=== PATIENT | female | born 1955 | race Caucasian/White ===

== ENCOUNTER 2020-04-30 03:32 | Emergency (ER) | payer OTHER ==
[2020-04-30] MEDS ORDERED: Lactated Ringers 500 ML IV ONE (04:40)
--- NOTE | 2020-04-30 04:40 | EDM.PDOC ---
ED HPI GENERAL MEDICAL PROBLEM - General Chief Complaint: Gastrointestinal Problem Stated Complaint: CONSTIPATION/VOMITING Time Seen by Provider: 04/30/20 04:31 - History of Present Illness INITIAL COMMENTS - FREE TEXT/NARRATIVE: 64-year-old female presents the emergency room with constipation and severe abdominal pain. This is been progressively getting worse over the last week. Patient has not had a BM in a week. She is getting progressively more and more bloated. The patient was seen in the walk-in clinic earlier today had x-rays done that did not show blockage but showed quite a bit of constipation. She drank some MiraLAX and this only made it worse. The patient has a history of diverticulosis diverticulitis and has gluten intolerance. She denies any fevers or chills she is very nauseated with some vomiting and burping frequently. Her only history of abdominal surgery involved hernia repair when she was a very small child. Left Abdomen Pain Score (Numeric/FACES): 10 - Related Data Allergies Allergy/AdvReac Type Severity Reaction Status Date / Time cat dander Allergy Severe Cannot Verified 04/30/20 04:14 Remember ciprofloxacin Allergy Severe Cannot Verified 04/30/20 04:14 Remember gluten Allergy Severe Abdominal Verified 04/30/20 04:14 Pain grass pollen Allergy Severe Cannot Verified 04/30/20 04:14 Remember metronidazole Allergy Severe Cannot Verified 04/30/20 04:14 Remember triamcinolone Allergy Severe Cannot Verified 04/30/20 04:14 Remember wheat Allergy Severe Cannot Verified 04/30/20 04:14 Remember metals Allergy Severe Cannot Uncoded 04/30/20 04:14 Remember tocopheryl acid succinate Allergy Severe Cannot Uncoded 04/30/20 04:14 Remember Home Meds: Home Meds ALPRAZolam [Alprazolam ER] 0.5 mg PO TID PRN 04/30/20 [History] Acetaminophen [Tylenol] 650 mg PO Q6H PRN 04/30/20 [History] Albuterol Sulfate [Albuterol Sulfate Hfa] 2 inh INH Q4H PRN 04/30/20 [History] Alum Hydroxide/Mag Carbonate [Gaviscon] 2 tab PO Q4H PRN 04/30/20 [History] Ascorbic Acid [Vitamin C] 1,000 mg PO DAILY 04/30/20 [History] Calcium Carbonate [Calcium] 1,800 mg PO DAILY 04/30/20 [History] Carboxymethyl/Gly/Poly80/Pf [Refresh Optive Advanced Drops] 1 drop EYEBOTH TID PRN 04/30/20 [History] Celecoxib 200 mg PO DAILY 04/30/20 [History] Cholecalciferol (Vitamin D3) [Vitamin D3] 5,000 unit PO DAILY 04/30/20 [History] Cyclobenzaprine [Flexeril] 10 mg PO TID 04/30/20 [History] Dicyclomine [Bentyl] 20 mg PO BID 04/30/20 [History] Eszopiclone 3 mg PO BEDTIME PRN 04/30/20 [History] Fluticasone Furoate [Arnuity Ellipta] 1 inh INH DAILY 04/30/20 [History] Glucosam/Chondr/Collagn/Hyalur [Glucosamine & Chondroitin Cap] 1 tab PO DAILY 04/30/20 [History] Magnesium Oxide 250 mg PO DAILY 04/30/20 [History] Multivitamin [Multi-Day Vitamins] 1 tab PO DAILY 04/30/20 [History] Ondansetron [Zofran ODT] 4 mg PO Q6H PRN #10 tab.dis 04/30/20 [Rx] Ondansetron [Zofran ODT] 4 mg SL Q6H PRN 04/30/20 [History] Orphenadrine [Norflex] 100 mg PO BID 04/30/20 [History] Pantoprazole [ProTONIX IV] 40 mg PO DAILY 04/30/20 [History] Scopolamine [Transderm-Scop] 1 patch TOP Q72H 04/30/20 [History] Solifenacin [Vesicare] 5 mg PO DAILY 04/30/20 [History] Umeclidinium [place] [Incruse Ellipta*] 1 inh INH ASDIRECTED 04/30/20 [History] Vitamin B Comp W-C/FA/Zinc [Laura B Strong with C & Zinc Tb] 1 tab PO DAILY 04/30/20 [History] Vitamin E 400 units PO DAILY 04/30/20 [History] traMADol [Ultram] 50 mg PO Q6H PRN 04/30/20 [History] Past Medical History Respiratory History: Reports: COPD Gastrointestinal History: Reports: Celiac Disease, Chronic Constipation, Other (See Below) Other Gastrointestinal History: diverticulitis, "GI tract issues" Musculoskeletal History: Reports: Back Pain, Chronic, Osteoarthritis - Past Surgical History Musculoskeletal Surgical History: Reports: Hip Replacement Social & Family History - Tobacco Use Smoking Status *Q: Never Smoker Second Hand Smoke Exposure: No - Caffeine Use Caffeine Use: Reports: None - Recreational Drug Use Recreational Drug Use: No ED ROS GENERAL - Review of Systems Review Of Systems: See Below Constitutional: Reports: No Symptoms HEENT: Reports: No Symptoms Respiratory: Reports: No Symptoms Cardiovascular: Reports: No Symptoms GI/Abdominal: Reports: Abdominal Pain, Constipation, Nausea, Vomiting. Denies: Diarrhea : Reports: No Symptoms Musculoskeletal: Reports: No Symptoms Skin: Reports: No Symptoms Neurological: Reports: No Symptoms Psychiatric: Reports: No Symptoms Hematologic/Lymphatic: Reports: No Symptoms ED EXAM, GI/ABD - Physical Exam Exam: See Below Exam Limited By: No Limitations General Appearance: Alert, No Apparent Distress Head: Atraumatic, Normocephalic Neck: Normal Inspection, Supple, Non-Tender, Full Range of Motion. No: Lymphadenopathy (L), Lymphadenopathy (R) Respiratory/Chest: No Respiratory Distress, Lungs Clear, Normal Breath Sounds Cardiovascular: Regular Rate, Rhythm, No Edema, No Murmur GI/Abdominal Exam: Other (Diminished high-pitched bowel sounds abdomen is distended with diffuse tenderness. Rebound or guarding noted however) Back Exam: Normal Inspection. No: CVA Tenderness (L), CVA Tenderness (R) Extremities: Normal Inspection, No Pedal Edema Neurological: Alert, Oriented, Normal Cognition Psychiatric: Normal Affect, Normal Mood Skin Exam: Warm, Dry, Intact Course - Vital Signs Last Recorded V/S: Last Vital Signs Temp 36.3 C 04/30/20 04:03 Pulse 67 04/30/20 04:03 Resp 16 04/30/20 04:03 BP 162/84 H 04/30/20 04:03 Pulse Ox 94 L 04/30/20 04:03 - Orders/Labs/Meds Orders: Active Orders 24 hr Category Date Time Status Enema [RC] ASDIRECTED Care 04/30/20 07:11 Active Abdomen Pelvis w Cont [CT] Stat Exams 04/30/20 05:46 Taken Lactated Ringers [Ringers, Lactated] 1,000 ml Med 04/30/20 04:45 Active IV ASDIRECTED Sodium Chloride 0.9% [Saline Flush] Med 04/30/20 05:47 Active 10 ml FLUSH ONETIME PRN Medication Orders Lactated Ringer's (Ringers, Lactated) 1,000 mls @ 125 mls/hr IV ASDIRECTED SHOSHANA Last Admin: 04/30/20 06:01 Dose: 125 mls/hr Documented by: ROSSY Sodium Chloride (Saline Flush) 10 ml FLUSH ONETIME PRN PRN Reason: Keep Vein Open Last Admin: 04/30/20 06:06 Dose: 10 ml Documented by: HAZEL Labs: Laboratory Tests 04/30/20 04/30/20 04/30/20 Range/Units 04:45 04:45 06:00 WBC 13.74 H (3.98-10.04) K/mm3 RBC 4.80 (3.98-5.22) M/mm3 Hgb 14.7 (11.2-15.7) gm/dl Hct 43.1 (34.1-44.9) % MCV 89.8 (79.4-94.8) fl MCH 30.6 (25.6-32.2) pg MCHC 34.1 (32.2-35.5) g/dl RDW Std Deviation 46.8 H (36.4-46.3) fL Plt Count 276 (182-369) K/mm3 MPV 9.2 L (9.4-12.3) fl Neut % (Auto) 78.8 H (34.0-71.1) % Lymph % (Auto) 11.9 L (19.3-51.7) % [place] % (Auto) 7.9 (4.7-12.5) % Eos % (Auto) 0.9 (0.7-5.8) Baso % (Auto) 0.2 (0.1-1.2) % Neut # (Auto) 10.84 H (1.56-6.13) K/mm3 Lymph # (Auto) 1.63 (1.18-3.74) K/mm3 [place] # (Auto) 1.08 H (0.24-0.36) K/mm3 Eos # (Auto) 0.12 (0.04-0.36) K/mm3 Baso # (Auto) 0.03 (0.01-0.08) K/mm3 Manual Slide Review Normal smear Sodium 134 L (136-145) mEq/L Potassium 3.2 L (3.5-5.1) mEq/L Chloride 96 L (98-107) mEq/L Carbon Dioxide 33 H (21-32) mEq/L Anion Gap 8.2 (5-15) BUN 8 (7-18) mg/dL Creatinine 0.8 (0.55-1.02) mg/dL Est Cr Clr Drug Dosing 60.54 mL/min Estimated GFR (MDRD) > 60 (>60) mL/min BUN/Creatinine Ratio 10.0 L (14-18) Glucose 106 (80-115) mg/dL Calcium 9.6 (8.5-10.1) mg/dL Total Bilirubin 0.6 (0.2-1.0) mg/dL AST 27 (15-37) U/L ALT 26 (14-59) U/L Alkaline Phosphatase 48 (46-116) U/L Total Protein 7.2 (6.4-8.2) g/dl Albumin 3.9 (3.4-5.0) g/dl Globulin 3.3 gm/dL Albumin/Globulin Ratio 1.2 (1-2) Lipase 72 L (73-393) U/L Urine Color Yellow (Yellow) Urine Appearance Clear (Clear) Urine pH 8.0 (5.0-8.0) Ur Specific [place] 1.020 (1.005-1.030) Urine Protein Negative (Negative) Urine Glucose (UA) Negative (Negative) Urine Ketones Negative (Negative) Urine Occult Blood Negative (Negative) Urine Nitrite Negative (Negative) Urine Bilirubin Negative (Negative) Urine Urobilinogen 0.2 (0.2-1.0) Ur Leukocyte Esterase Negative (Negative) Meds: Medications Generic Name Dose Route Start Last Admin Trade Name Freq PRN Reason Stop Dose Admin Lactated Ringer's 1,000 mls @ 125 mls/hr 04/30/20 04:45 04/30/20 06:01 Ringers, Lactated IV 125 mls/hr ASDIRECTED SHOSHANA Administration Sodium Chloride 10 ml 04/30/20 05:47 04/30/20 06:06 Saline Flush FLUSH 10 ml ONETIME PRN Administration Keep Vein Open Discontinued Medications Generic Name Dose Route Start Last Admin Trade Name Freq PRN Reason Stop Dose Admin Diatrizoate Meglum/Diatrizoate Sod 60 ml 04/30/20 05:47 04/30/20 06:06 Gastrografin 37% PO 04/30/20 05:48 60 ml ONETIME ONE Administration Fentanyl 50 mcg 04/30/20 04:41 04/30/20 04:52 Sublimaze IVPUSH 04/30/20 04:42 50 mcg ONETIME ONE Administration Lactated Ringer's 500 mls @ 999 mls/hr 04/30/20 04:40 04/30/20 04:52 Ringers, Lactated IV 04/30/20 05:10 999 mls/hr .BOLUS ONE Administration Iopamidol 100 ml 04/30/20 05:47 04/30/20 06:06 Isovue-300 (61%) IVPUSH 04/30/20 05:48 100 ml ONETIME ONE Administration Ondansetron HCl 4 mg 04/30/20 04:41 04/30/20 04:52 Zofran IVPUSH 04/30/20 04:42 4 mg ONETIME ONE Administration - Re-Assessments/Exams Free Text/Narrative Re-Assessment/Exam: 04/30/20 07:[address] came back she has no acute intra-abdominal pathology noted except she is extremely constipated. She is also has a left lingular lower segment mass 9.5 x 7.8 mm noncalcified seen on the CT. I did discuss this with the patient she feels much better after having a large BM just a few minutes ago. She still has some nausea but is doing much better. We discussed her trying another bottle of mag citrate and she just refuses to try this however she will continue with the MiraLAX every day and see if this works she can also use some fleets enemas at home if she does not get some relief. As she still having some intermittent nausea we will discharge her with a prescription for Zofran Departure - Departure Time of Disposition: 07:29 Disposition: Home, Self-Care 01 Clinical Impression: Abdominal pain, Constipation - Discharge Information Referrals: PCP,None [Primary Care Provider] - Forms: ED Department Discharge Additional Instructions: Return to the emergency room with any questions problems or worsening symptoms. Return in 24 hours if not obviously improving. Push lots of fluids use the MiraLAX every day. For the residual nausea you have been given a prescription for Zofran this is been sent to [facility] on [address]. Follow-up with your regular provider in [place] later this week for recheck. Discuss with them this possible lung mass you have seen on the CT done this morning and determine if this is old if not you need repeat imaging in 3 months to confirm stability. Repeat imaging is best done by repeat CT. Also discuss how you are doing with your constipation. Sepsis Event Note (ED) - Evaluation Sepsis Screening Result: No Definite Risk - Focused Exam Vital Signs: Vital Signs Temp Pulse Resp BP Pulse Ox 04/30/20 04:03 36.3 C 67 16 162/84 H 94 L - My Orders Last 24 Hours: My Active Orders 04/30/20 04:45 Lactated Ringers [Ringers, Lactated] 1,000 ml IV ASDIRECTED 04/30/20 05:46 Abdomen Pelvis w Cont [CT] Stat 04/30/20 05:47 Sodium Chloride 0.9% [Saline Flush] 10 ml FLUSH ONETIME PRN 04/30/20 07:11 Enema [RC] ASDIRECTED - Assessment/Plan Last 24 Hours: My Active Orders 04/30/20 04:45 Lactated Ringers [Ringers, Lactated] 1,000 ml IV ASDIRECTED 04/30/20 05:46 Abdomen Pelvis w Cont [CT] Stat 04/30/20 05:47 Sodium Chloride 0.9% [Saline Flush] 10 ml FLUSH ONETIME PRN 04/30/20 07:11 Enema [RC] ASDIRECTED
[2020-04-30] MEDS ORDERED: Ondansetron 4 MG/2 ML SDV IVPUSH ONE (04:41)
[2020-04-30] MEDS ORDERED: fentaNYL 100 MCG/2 ML SDV IVPUSH ONE (04:41)
[2020-04-30] MEDS ORDERED: Lactated Ringers 1,000 ML IV SCH (04:45)
[2020-04-30] MEDS ORDERED: Iopamidol 612 MG/ML 100 ML Bottle IVPUSH ONE (05:47)
[2020-04-30] MEDS ORDERED: Sodium Chloride 0.9% 10 ML Syringe FLUSH PRN (05:47)
[2020-04-30] MEDS ORDERED: Diatrizoate Meglumine/Diatrizoate Sodium 37% 120 ML Bottle PO ONE (05:47)
--- NOTE | 2020-04-30 12:14 | CT ---
CT abdomen and pelvis Technique: Multiple axial sections were obtained from above the dome of the diaphragm inferiorly through the pubic symphysis. Intravenous and oral contrast was utilized. Delayed images were also obtained through the abdomen and pelvis. Comparison: No previous abdominal imaging is available. Findings: Visualized lung bases slight scarring is noted within both lung bases. Questionable nodule is partially seen adjacent to the pericardium within the lingula. Finding measures about 1.0 cm. Multiple low-density findings are noted within the liver which are felt to represent multiple liver cysts. These are seen within both right and left lobes. Spleen appears within normal limits. Adrenal glands show no nodule. Kidneys show symmetric contrast enhancement. Small low density lesion noted within the inferior left kidney most likely representing minimal cyst. This measures 5 mm and is too small to obtain accurate Hounsfield unit measurements to definitely confirm. Gallbladder contains no calcified gallstones. Aorta shows no aneurysm. No retroperitoneal adenopathy or mesenteric abnormalities are seen. Diffuse stool noted throughout the colon. Left colon shows evidence of diverticuli. Appendix not visualized with definite certainty. Bone window settings were reviewed which shows degenerative change within the spine. 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 Impression: 1. Fairly prominent increased stool throughout the colon. 2. Nodule within the lingula. Contrast enhanced chest CT recommended at some time in the future to further evaluate. 3. Other findings as noted above which I feel are benign. Diagnostic code #9 This report was dictated in MDT I agree with preliminary report from [facility], finalized on 04/30/20, 7:36 AM Central Daylight Time
== END 2020-04-30 08:05 | disposition home or self-care (01) ==
LOC: JD.ED 03:32
DX: K59.00 Constipation, unspecified (principal); J44.9 Chronic obstructive pulmonary disease, unspecified; M19.90 Unspecified osteoarthritis, unspecified site; Z91.048 Other nonmedicinal substance allergy status; Z88.8 Allergy status to other drugs, medicaments and biological substances; Z88.1 Allergy status to other antibiotic agents; Z91.018 Allergy to other foods; Z79.899 Other long term (current) drug therapy
CPT/HCPCS: 36415; 74177; 80053; 81003; 83690; 85025; 96361; 96374; 96375; 99284; J2405; J3010; J7120; Q9963; Q9967

== ENCOUNTER 2024-06-01 07:54 | Day surgery (SDC) | payer MEDICARE, OTHER ==
[~2024-06-01 07:54] MED LIST: Lactated Ringers 1,000 ML IV SCH; Propofol 200 MG/20 ML SDV ONE; Sodium Chloride 0.9% 10 ML Syringe FLUSH PRN; Sodium Chloride 0.9% 10 ML Syringe FLUSH SCH
[2024-06-01] MEDS ORDERED: Lidocaine 2% 5 ML SDV ONE (07:59)
[2024-06-01] MEDS ORDERED: Phenylephrine 1% 10 MG/ML SDV ONE (07:59)
[2024-06-01] MEDS ORDERED: Sodium Chloride 0.9% 100 ML ONE (07:59)
[2024-06-01] MEDS: Lactated Ringers 1,000 ML IV SCH (08:00)
[2024-06-01] MEDS ORDERED: dexmedeTOMIDine HCl 200 MCG/2 ML SDV ONE ×2 (08:00→08:01)
[2024-06-01] MEDS ORDERED: Midazolam 1 MG/ML 2 ML SDV ONE (08:28)
[2024-06-01] MEDS ORDERED: Ondansetron 4 MG/2 ML SDV ONE (09:20)
[2024-06-01] MEDS ORDERED: Propofol 200 MG/20 ML SDV ONE (10:00)
== END 2024-06-01 11:20 | disposition home or self-care (01) ==
LOC: JD.SDS 07:54
PROVIDERS: ATTEND Surgery
DX: Z12.11 Encounter for screening for malignant neoplasm of colon (principal); D12.2 Benign neoplasm of ascending colon; D12.3 Benign neoplasm of transverse colon; K21.00 Gastro-esophageal reflux disease with esophagitis, without bleeding; Z86.010 Personal history of colon polyps; K57.30 Diverticulosis of large intestine without perforation or abscess without bleeding
CPT/HCPCS: 43239; 45380; 45381; 88305; J2250; J2405; J2704; J3490; J7120; 00813; J2371

== ENCOUNTER 2025-01-04 07:09 | Day surgery (SDC) | payer MEDICARE, OTHER ==
[~2025-01-04 07:09] MED LIST changes: -Lactated Ringers 1,000 ML IV SCH; -Propofol 200 MG/20 ML SDV ONE
[2025-01-04] MEDS ORDERED: Propofol 200 MG/20 ML SDV ONE ×2 (07:13→08:39)
[2025-01-04] MEDS: Lactated Ringers 1,000 ML IV SCH (07:30)
[2025-01-04] MEDS ORDERED: Ondansetron 4 MG/2 ML SDV ONE (08:26)
[2025-01-04] MEDS ORDERED: Ondansetron 4 MG/2 ML SDV IVPUSH PRN (09:20)
[2025-01-04] MEDS ORDERED: HYDROmorphone 0.5 MG/0.5 ML Syringe IVPUSH PRN (09:20)
[2025-01-04] MEDS ORDERED: fentaNYL 100 MCG/2 ML SDV IVPUSH PRN (09:20)
== END 2025-01-04 10:20 | disposition home or self-care (01) ==
LOC: JD.SDS 07:09
PROVIDERS: ATTEND Surgery
DX: Z12.11 Encounter for screening for malignant neoplasm of colon (principal); D12.2 Benign neoplasm of ascending colon; D12.3 Benign neoplasm of transverse colon; K63.5 Polyp of colon; K62.1 Rectal polyp; K57.30 Diverticulosis of large intestine without perforation or abscess without bleeding; J44.9 Chronic obstructive pulmonary disease, unspecified; F32.A Depression, unspecified; K21.9 Gastro-esophageal reflux disease without esophagitis; Z87.891 Personal history of nicotine dependence; Z79.899 Other long term (current) drug therapy; Z88.1 Allergy status to other antibiotic agents; Z88.8 Allergy status to other drugs, medicaments and biological substances; Z91.048 Other nonmedicinal substance allergy status; Z86.0100 Personal history of colon polyps, unspecified
CPT/HCPCS: 45380; J2405; J2704; J7120; 00811